=== PATIENT | female | born 1970 | race Caucasian/White ===

== ENCOUNTER 2022-03-25 23:22 | Emergency (ER) | payer OTHER, SELFPAY ==
[2022-03-25] MEDS ORDERED: Morphine 4 MG/ML VIAL ONE (23:49)
[2022-03-25] MEDS ORDERED: Ondansetron ODT 4 MG TAB ONE (23:49)
[2022-03-26] MEDS ORDERED: Midazolam HCl 2 mg/2 ml Vial ONE ×2 (01:17→01:18)
[2022-03-26] MEDS ORDERED: Fentanyl 100 MCG/2 ML VIAL ONE (01:17)
[2022-03-26] MEDS ORDERED: Naproxen 500 MG TAB ONE (02:28)
== END 2022-03-26 02:42 | disposition home or self-care (01) ==
LOC: NAV ERS 23:22
DX: S53.124A Posterior dislocation of right ulnohumeral joint, initial encounter (principal); S53.401A Unspecified sprain of right elbow, initial encounter; E03.9 Hypothyroidism, unspecified; W01.0XXA Fall on same level from slipping, tripping and stumbling without subsequent striking against object, initial encounter
CPT/HCPCS: 24640; 96372; 96374; 99152; 99153; J2250; J2270; J3010; Q0162

== ENCOUNTER 2022-04-01 12:44 | Emergency (ER) | payer SELFPAY | END 2022-04-01 14:42 | disposition home or self-care (01) | LOC: NAV ERS 12:44 | DX: S50.01XA Contusion of right elbow, initial encounter (principal); E03.9 Hypothyroidism, unspecified; X58.XXXA Exposure to other specified factors, initial encounter; Z79.899 Other long term (current) drug therapy ==